=== PATIENT | female | born 1960 | race Caucasian/White ===

== ENCOUNTER 2016-04-17 03:27 | Observation (INO) | payer OTHER ==
[~2016-04-17] VITALS: Ht 160 cm; Wt 90.3 kg
[~2016-04-17 03:27] MED LIST: AFRIN,GENASAL D15 ML BOTH NARES; AMITRIPTYLINE H10 MG PO; BENTYL10 MG PO; CARAFATE1 GM PO; CIPROFLOXACIN500 M1 PO; DICYCLOMINE HCL10 MG PO; DOMP10T PO; ELAVIL10 MG PO; FLAGYL500 MG PO; FLONASE16 G1 BOTH NARES; GAS FREE125 MG PO; KLONOPIN0.5 M1 PO; KlonoPIN PO; LEVAQUIN500 MG PO; Levaquin PO; MAALOX ADVANCE355 ML PO; MECLIZINE HCL25 MG; MECLIZINE HCL25 MG PO; METOCLOPRAMIDE10 MG PO; MUCINEX600 MG PO; OMEPRAZOLE40 M1 PO; PANTOPRAZOLE SO40 MG PO; PERCOCET 5/31 TABLET PO; PHENERGAN25 MG PR; PHILLIPS; PRAVACHOL40 MG PO; PRAVASTATIN SOD80 MG PO; PRINZIDE 20-251 EACH PO; PROBIOTIC1 EAC1 PO; PROMETHAZINE HC25 M1 PO; PROMETHAZINE12.5 M1 PO; PROTONIX40 MG PO; Percocet 5/325,Endoc PO; Protonix PO; SIMETHICONE125 M1 PO; TRAMADOL HCL50 MG PO; ULTRAM50 MG PO; VALIUM5 MG PO; VICODIN 5-5001 EACH PO; ZESTORETIC 20-1 EAC1 NG; ZESTORETIC 20-1 EAC1 PO; ZOFRAN ODT4 MG PO; ZOFRAN ODT8 MG PO; ZOFRAN4 MG PO; ZYRTEC10 M2 PO; Zestoretic,Prinzide PO
[2016-04-17 03:52] LABS: HEMATOCRIT 43.5 % (36.0-46.0); MCH 26.5 PG (29.0-34.0); MCHC 33.3 G/DL (30.0-36.0); MCV 79.5 FL (83-99); MEAN PLAT.VOLUME 9.6 uM^3 (9.5-12.4); PLATELET COUNT 385 K/uL (156-360); RBC DIS.WIDTH-SD 40.1 % (39-53); RED BLOOD COUNT 5.47 M/uL (3.80-5.20); WHITE BLOOD COUNT 11.8 K/uL (4.1-10.2)
[2016-04-17 04:00] LABS: CHLORIDE 98 mEq/L (99-109); POTASSIUM 3.7 mEq/L (3.7-5.4); SODIUM 136 mEq/L (136-147)
[2016-04-17 04:02] LABS: GLUCOSE 185 mg/dL (70-99)
[2016-04-17 04:04] LABS: ANION GAP 19 MEQ/L (2-14); TOTAL BILIRUBIN 0.6 mg/dL (0.0-1.0)
[2016-04-17 04:06] LABS: ALKALINE PHOSPHATASE 89 IU/L (3-129); GFR ESTIMATE (CALCULATED) 41 mL/min/
[2016-04-17 04:07] LABS: UREA NITROGEN (BUN) 30 mg/dL (9-23)
[2016-04-17 04:09] LABS: LIPASE 28 U/L (1.0-51.0)
[2016-04-17 04:15] LABS: QUANTITATIVE HCG < 4.0 MIU/ML
[2016-04-17] MEDS ORDERED: CIPRO500 MG PO (04:47)
[2016-04-17] MEDS ORDERED: FLAGYL500 MG PO (04:47)
[2016-04-17] MEDS ORDERED: ZOFRAN4 MG PO (04:47)
[2016-04-17] MEDS ORDERED: CO Q-10100 MG PO (07:50)
[2016-04-17] MEDS ORDERED: DOMP10T PO (07:52)
[2016-04-17 09:07] VITALS: BP 161/86
[2016-04-17 11:47] VITALS: BP 150/76
[2016-04-17 16:36] VITALS: BP 138/77
[2016-04-17 20:24] VITALS: BP 132/67
[2016-04-18] VITALS (7 sets, daily range): BP systolic 117–154; BP diastolic 53–84
[2016-04-18 07:35] LABS: Estimated Average Glucose 143 mg/dL (70-123); HEMOGLOBIN A1c (GLYCOHEMOGLOB) 6.6 % HGB (Below 5.7)
[2016-04-18 07:41] LABS: ANION GAP 9 MEQ/L (2-14); CHLORIDE 107 MEQ/L (99-109); GFR ESTIMATE (CALCULATED) > 59 mL/min/; POTASSIUM 3.5 MEQ/L (3.7-5.4); SAMPLE HEMOLYSIS CHECK 0; SAMPLE ICTERIC CHECK 0; SAMPLE LIPEMIA CHECK 0; SODIUM 142 MEQ/L (136-147); UREA NITROGEN (BUN) 25 mg/dL (9-23)
[2016-04-18 07:42] LABS: GLUCOSE 117 mg/dL (70-99)
[2016-04-18 08:02] LABS: HEMATOCRIT 35.3 % (36.0-46.0); MCH 26.4 PG (29.0-34.0); MCHC 31.7 G/DL (30.0-36.0); MCV 83.1 FL (83-99); RBC DIS.WIDTH-CV 14.4 % (11.8-14.6); RBC DIS.WIDTH-SD 43.6 % (39-53); RED BLOOD COUNT 4.25 M/uL (3.80-5.20); WHITE BLOOD COUNT 9.9 K/uL (4.1-10.2)
[2016-04-19 03:38] VITALS: BP 156/81
[2016-04-19 07:37] VITALS: BP 143/73
[2016-04-19 07:38] LABS: EOSINOPHIL (%) 2.7 % (0-5); EOSINOPHIL COUNT 0.2 K/uL (0-0.3); HEMATOCRIT 35.1 % (36.0-46.0); IMMATURE GRANULOCYTE (%) 0.6 % (0.0-0.7); IMMATURE GRANULOCYTE COUNT 0.1 K/uL; LYMPHOCYTE COUNT 1.8 K/uL (1.0-2.8); MCH 26.5 PG (29.0-34.0); MCHC 32.2 G/DL (30.0-36.0); MCV 82.2 FL (83-99); MONOCYTE (%) 7.3 % (3-12); MONOCYTE COUNT 0.6 K/uL (0-0.8); NEUTROPHIL (%) 69.1 % (45-76); NEUTROPHIL COUNT 6.1 K/uL (1.8-6.4); RBC DIS.WIDTH-CV 13.8 % (11.8-14.6); RBC DIS.WIDTH-SD 41.5 % (39-53); RED BLOOD COUNT 4.27 M/uL (3.80-5.20); WHITE BLOOD COUNT 8.8 K/uL (4.1-10.2)
[2016-04-19 08:03] LABS: ALKALINE PHOSPHATASE 59 IU/L (3-129); ANION GAP 7 MEQ/L (2-14); CHLORIDE 106 MEQ/L (99-109); GFR ESTIMATE (CALCULATED) > 59 mL/min/; GLUCOSE 94 mg/dL (70-99); POTASSIUM 3.6 MEQ/L (3.7-5.4); SAMPLE HEMOLYSIS CHECK 0; SAMPLE ICTERIC CHECK 0; SAMPLE LIPEMIA CHECK 0; SODIUM 139 MEQ/L (136-147); TOTAL BILIRUBIN 0.3 MG/DL (0.0-1.0); UREA NITROGEN (BUN) 16 mg/dL (9-23)
[2016-04-19 09:40] LABS: MEAN PLAT.VOLUME 9.6 uM^3 (9.5-12.4); PLAT.SUFFICIENCY ADEQUATE; PLATELET COUNT 212 K/uL (156-360); USER ID CL
[2016-04-19] MEDS ORDERED: METRONIDAZOLE500 MG PO (10:37)
[2016-04-19] MEDS ORDERED: CIPRO500 MG PO (10:37)
[2016-04-19] MEDS ORDERED: LISINOPRIL20 MG PO (10:37)
== END 2016-04-19 13:26 | disposition home or self-care (01) ==
LOC: EME 03:27 → EDOF 07:19 → 2EAST 07:19 → EDOF 07:19 → 2EAST 08:44
PROVIDERS: Hospitalist; Internal Medicine
DX: K57.32 Diverticulitis of large intestine without perforation or abscess without bleeding (principal); N17.9 Acute kidney failure, unspecified; I10 Essential (primary) hypertension; E78.5 Hyperlipidemia, unspecified; K21.9 Gastro-esophageal reflux disease without esophagitis; Z82.49 Family history of ischemic heart disease and other diseases of the circulatory system; Z88.0 Allergy status to penicillin; Z88.2 Allergy status to sulfonamides; Z88.5 Allergy status to narcotic agent; Z88.1 Allergy status to other antibiotic agents
CPT/HCPCS: 74176; 80048; 80053; 81003; 83036; 83690; 84702; 85025; 85027; 87040; 99281; 99283; C9113; G0378; J1170; J1650; J1956; J2405; J2550; J2765; J3480; J7030; J7042; S0030

== ENCOUNTER 2016-07-03 12:37 | Inpatient (IN) | payer OTHER ==
[~2016-07-03] VITALS: Ht 160 cm; Wt 93.0 kg
[~2016-07-03 12:37] MED LIST changes: +CIPRO500 MG PO; +CO Q-10100 MG PO; +LISINOPRIL20 MG PO; +METRONIDAZOLE500 MG PO
[2016-07-03 13:43] LABS: HEMATOCRIT 43.8 % (36.0-46.0); MCH 25.3 PG (29.0-34.0); MCHC 32.6 G/DL (30.0-36.0); MCV 77.5 FL (83-99); MEAN PLAT.VOLUME 9.3 uM^3 (9.5-12.4); PLATELET COUNT 433 K/uL (156-360); RBC DIS.WIDTH-CV 14.2 % (11.8-14.6); RBC DIS.WIDTH-SD 39.6 % (39-53); RED BLOOD COUNT 5.65 M/uL (3.80-5.20); WHITE BLOOD COUNT 13.9 K/uL (4.1-10.2)
[2016-07-03 13:52] LABS: CHLORIDE 101 mEq/L (99-109); POTASSIUM 3.8 mEq/L (3.7-5.4); SODIUM 138 mEq/L (136-147)
[2016-07-03 13:54] LABS: GLUCOSE 150 mg/dL (70-99)
[2016-07-03 13:55] LABS: ANION GAP 19 MEQ/L (2-14)
[2016-07-03 13:56] LABS: TOTAL BILIRUBIN 0.6 mg/dL (0.0-1.0)
[2016-07-03 13:58] LABS: ALKALINE PHOSPHATASE 75 IU/L (3-129); GFR ESTIMATE (CALCULATED) 49 mL/min/
[2016-07-03 13:59] LABS: UREA NITROGEN (BUN) 25 mg/dL (9-23)
[2016-07-03 15:31] LABS: LIPASE 16 U/L (1.0-51.0)
[2016-07-03 17:42] LABS: ADD MIUA? YES; BILIRUBIN NEGATIVE; BLOOD MODERATE; COLOR YELLOW ((YELLOW)); GLUCOSE (STRIP) NEGATIVE; KETONES 20; LEUKOCYTES NEGATIVE; NITRITE NEGATIVE; PROTEIN (STRIP) 30; SPECIFIC GRAVITY 1.018 (1.000-1.030); UROBILINOGEN 0.2 MG/DL (0.2-1.0)
[2016-07-03 17:53] LABS: BACTERIA NONE SEEN /HPF; EPITHELIAL CELLS RARE /HPF; HYALINE CASTS 0-5 /LPF; MUCUS TRACE /LPF; UCUL ADDED? NO; WHITE BLOOD CELLS 0-5 /HPF (0-5)
[2016-07-03] MEDS ORDERED: DILAUDID2 MG PO (19:01)
[2016-07-03] MEDS ORDERED: REGLAN10 MG PO (19:01)
[2016-07-03] MEDS ORDERED: LISINOPRIL20 MG PO (20:27)
[2016-07-03] MEDS ORDERED: FLEXERIL10 MG PO (20:29)
[2016-07-03 23:40] VITALS: BP 118/66
[2016-07-04] VITALS (7 sets, daily range): BP systolic 100–202; BP diastolic 54–91
[2016-07-04 06:58] LABS: ANION GAP 11 MEQ/L (2-14); CHLORIDE 104 MEQ/L (99-109); GFR ESTIMATE (CALCULATED) > 59 mL/min/; POTASSIUM 3.9 MEQ/L (3.7-5.4); SAMPLE HEMOLYSIS CHECK 0; SAMPLE ICTERIC CHECK 0; SAMPLE LIPEMIA CHECK 0; SODIUM 139 MEQ/L (136-147); UREA NITROGEN (BUN) 23 mg/dL (9-23)
[2016-07-04 07:01] LABS: GLUCOSE 101 mg/dL (70-99)
[2016-07-04 09:16] LABS: EOSINOPHIL (%) 0.7 % (0-5); EOSINOPHIL COUNT 0.1 K/uL (0-0.3); HEMATOCRIT 34.9 % (36.0-46.0); IMMATURE GRANULOCYTE (%) 0.8 % (0.0-0.7); IMMATURE GRANULOCYTE COUNT 0.1 K/uL; INSTRUMENT ABS NEUTROPHIL CT 7.1 K/uL; LYMPHOCYTE COUNT 1.9 K/uL (1.0-2.8); MCH 25.5 PG (29.0-34.0); MCHC 31.5 G/DL (30.0-36.0); MCV 80.8 FL (83-99); MONOCYTE COUNT 0.9 K/uL (0-0.8); NEUTROPHIL (%) 70.6 % (45-76); NEUTROPHIL COUNT 7.1 K/uL (1.8-6.4); RBC DIS.WIDTH-CV 14.6 % (11.8-14.6); RBC DIS.WIDTH-SD 42.5 % (39-53); WHITE BLOOD COUNT 10.1 K/uL (4.1-10.2)
[2016-07-04 09:21] LABS: RED BLOOD COUNT 4.32 M/uL (3.80-5.20)
[2016-07-04 11:43] LABS: MEAN PLAT.VOLUME 9.2 uM^3 (9.5-12.4); PLAT.SUFFICIENCY ADEQUATE
[2016-07-04 11:49] LABS: PLATELET COUNT 292 K/uL (156-360)
[2016-07-04 21:08] LABS: HEMATOCRIT 33.9 % (36.0-46.0); MCH 25.9 PG (29.0-34.0); MCHC 32.4 G/DL (30.0-36.0); MEAN PLAT.VOLUME 9.1 uM^3 (9.5-12.4); PLATELET COUNT 296 K/uL (156-360); RBC DIS.WIDTH-CV 14.3 % (11.8-14.6); RBC DIS.WIDTH-SD 41.5 % (39-53); RED BLOOD COUNT 4.24 M/uL (3.80-5.20); WHITE BLOOD COUNT 11.6 K/uL (4.1-10.2)
[2016-07-04 21:35] LABS: IRON 80 MCG/DL (35-150)
[2016-07-04 21:50] LABS: FERRITIN 24 NG/ML (10-291)
[2016-07-05 04:01] VITALS: BP 106/58
[2016-07-05 07:37] VITALS: BP 119/65
[2016-07-05 09:03] LABS: HEMATOCRIT 32.8 % (36.0-46.0); MCH 26.2 PG (29.0-34.0); MCHC 32.3 G/DL (30.0-36.0); MEAN PLAT.VOLUME 9.1 uM^3 (9.5-12.4); PLATELET COUNT 248 K/uL (156-360); RBC DIS.WIDTH-CV 14.4 % (11.8-14.6); RBC DIS.WIDTH-SD 42.6 % (39-53); RED BLOOD COUNT 4.05 M/uL (3.80-5.20)
[2016-07-05 09:19] LABS: WHITE BLOOD COUNT 6.7 K/uL (4.1-10.2)
[2016-07-05 09:27] LABS: ALKALINE PHOSPHATASE 51 IU/L (3-129); ANION GAP 7 MEQ/L (2-14); CHLORIDE 106 MEQ/L (99-109); GFR ESTIMATE (CALCULATED) > 59 mL/min/; GLUCOSE 103 mg/dL (70-99); POTASSIUM 3.5 MEQ/L (3.7-5.4); SAMPLE HEMOLYSIS CHECK 0; SAMPLE ICTERIC CHECK 0; SAMPLE LIPEMIA CHECK 0; SODIUM 139 MEQ/L (136-147); TOTAL BILIRUBIN 0.4 MG/DL (0.0-1.0); UREA NITROGEN (BUN) 17 mg/dL (9-23)
[2016-07-05 11:12] VITALS: BP 110/55
[2016-07-05 14:48] LABS: C DIFF TOXIN NEGATIVE (NEGATIVE)
[2016-07-05 14:57] LABS: PROBE CHECK PASS; SPECIMEN PROCESSING CONTROL PASS
[2016-07-05 15:30] VITALS: BP 125/75
[2016-07-05 20:06] VITALS: BP 124/64
[2016-07-05 23:54] VITALS: BP 119/58
[2016-07-06 03:47] VITALS: BP 143/73
[2016-07-06 08:30] VITALS: BP 146/70
[2016-07-06] MEDS ORDERED: ZOFRAN ODT4 MG PO (11:55)
[2016-07-06] MEDS ORDERED: ZOFRAN4 MG PO (11:56)
[2016-07-06] MEDS ORDERED: PANTOPRAZOLE SO40 MG PO (11:56)
== END 2016-07-06 13:56 | disposition home or self-care (01) | DRG 392 ==
LOC: EME 12:37 → 5WEST 22:46 → EDOF 22:46 → 5WEST 23:32
PROVIDERS: Hospitalist; Nurse Practitioner Adult Health; Specialist
DX: K31.84 Gastroparesis (principal); G43.A0 Cyclical vomiting, in migraine, not intractable; G89.4 Chronic pain syndrome; I10 Essential (primary) hypertension; E78.5 Hyperlipidemia, unspecified; E66.9 Obesity, unspecified; Z68.36 Body mass index [BMI] 36.0-36.9, adult; D64.9 Anemia, unspecified; K21.9 Gastro-esophageal reflux disease without esophagitis; K57.30 Diverticulosis of large intestine without perforation or abscess without bleeding; R31.29 Other microscopic hematuria; Z90.49 Acquired absence of other specified parts of digestive tract; Z79.891 Long term (current) use of opiate analgesic
CPT/HCPCS: 71100; 74176; 80048; 80053; 81003; 82607; 82728; 82746; 83540; 83690; 84466; 85025; 85027; 87493; 99281; 99283; G0378; J0360; J0780; J1170; J1630; J1644; J2405; J2765; J3010; J7030; J7050; S0028

== ENCOUNTER 2017-06-28 12:12 | Inpatient (IN) | payer OTHER ==
[~2017-06-28] VITALS: Ht 160 cm; Wt 89.4 kg
[~2017-06-28 12:12] MED LIST changes: +DILAUDID2 MG PO; +FLEXERIL10 MG PO; +OXYCODONE HCL5 MG PO; -PERCOCET 5/31 TABLET PO; +REGLAN10 MG PO
[2017-06-28 12:46] LABS: HEMATOCRIT 42.9 % (36.0-46.0); HEMOGLOBIN 14.5 G/DL (11.9-15.5); MCH 27.4 PG (29.0-34.0); MCHC 33.8 G/DL (30.0-36.0); MCV 81.1 FL (83-99); PLATELET COUNT 343 K/uL (156-360); RBC DIS.WIDTH-CV 13.7 % (11.8-14.6); RBC DIS.WIDTH-SD 39.8 % (39-53); RED BLOOD COUNT 5.29 M/uL (3.80-5.20); WHITE BLOOD COUNT 10.8 K/uL (4.1-10.2)
[2017-06-28 13:01] LABS: ALBUMIN 4.7 g/dL (3.2-4.8); CHLORIDE 100 mEq/L (99-109); POTASSIUM 3.9 mEq/L (3.7-5.4); SODIUM 138 mEq/L (136-147)
[2017-06-28 13:03] LABS: GLUCOSE 163 mg/dL (70-99)
[2017-06-28 13:04] LABS: TOTAL PROTEIN 8.2 g/dL (6.4-8.3)
[2017-06-28 13:05] LABS: TOTAL BILIRUBIN 0.5 mg/dL (0.0-1.0)
[2017-06-28 13:07] LABS: ALKALINE PHOSPHATASE 72 IU/L (3-129); CREATININE 1.1 mg/dL (0.6-1.3); GFR ESTIMATE (CALCULATED) 54 mL/min/
[2017-06-28 13:08] LABS: UREA NITROGEN (BUN) 22 mg/dL (9-23)
[2017-06-28 13:09] LABS: AST (GOT) 24 IU/L (2-34)
[2017-06-28 13:10] LABS: ALT (GPT) 25 IU/L (3-49)
[2017-06-28 15:17] LABS: LIPASE 20 U/L (1.0-51.0)
[2017-06-28 15:45] LABS: APPEARANCE CLEAR ((CLEAR)); BILIRUBIN NEGATIVE; BLOOD MODERATE; COLOR YELLOW ((YELLOW)); GLUCOSE (STRIP) 50; KETONES 20; LEUKOCYTES NEGATIVE; NITRITE NEGATIVE; PROTEIN (STRIP) 30; SPECIFIC GRAVITY 1.023 (1.000-1.030)
[2017-06-28 15:51] LABS: BACTERIA NONE SEEN /HPF; EPITHELIAL CELLS RARE /HPF; HYALINE CASTS 0-5 /LPF; MUCUS TRACE /LPF; UCUL ADDED? NO; WHITE BLOOD CELLS 0-5 /HPF (0-5)
[2017-06-28] MEDS ORDERED: ZOFRAN ODT4 MG PO (16:53)
[2017-06-28] MEDS ORDERED: MECLIZINE HCL25 MG PO (16:54)
[2017-06-28] MEDS ORDERED: PROTONIX40 MG PO (16:54)
[2017-06-28] MEDS ORDERED: BENTYL10 MG PO (16:54)
[2017-06-28 19:45] VITALS: BP 177/98
[2017-06-28 23:43] VITALS: BP 137/63
[2017-06-29 03:51] VITALS: BP 174/97
[2017-06-29 05:50] LABS: BASOPHIL (%) 0.2 % (0-1); EOSINOPHIL (%) 0.2 % (0-5); HEMATOCRIT 34.6 % (36.0-46.0); IMMATURE GRANULOCYTE (%) 0.6 % (0.0-0.7); LYMPHOCYTE (%) 8.5 % (15-42); LYMPHOCYTE COUNT 1.2 K/uL (1.0-2.8); MCH 26.9 PG (29.0-34.0); MCHC 32.7 G/DL (30.0-36.0); MCV 82.4 FL (83-99); MONOCYTE (%) 5.6 % (3-12); MONOCYTE COUNT 0.8 K/uL (0-0.8); NEUTROPHIL (%) 84.9 % (45-76); PLATELET COUNT 279 K/uL (156-360); RBC DIS.WIDTH-CV 14.1 % (11.8-14.6); RBC DIS.WIDTH-SD 41.4 % (39-53); WHITE BLOOD COUNT 14.2 K/uL (4.1-10.2)
[2017-06-29 05:51] LABS: HEMOGLOBIN 11.3 G/DL (11.9-15.5)
[2017-06-29 07:01] LABS: CHLORIDE 104 MEQ/L (99-109); CREATININE 0.8 MG/DL (0.6-1.3); GFR ESTIMATE (CALCULATED) > 59 mL/min/; GLUCOSE 142 mg/dL (70-99); POTASSIUM 3.6 MEQ/L (3.7-5.4); SODIUM 141 MEQ/L (136-147); UREA NITROGEN (BUN) 16 mg/dL (9-23)
[2017-06-29 07:07] VITALS: BP 146/69
[2017-06-29 15:53] VITALS: BP 127/57
[2017-06-29 19:20] VITALS: BP 178/88
[2017-06-29 23:57] VITALS: BP 134/61
[2017-06-30 07:21] VITALS: BP 190/88
[2017-06-30 09:05] VITALS: BP 181/81
[2017-06-30 11:11] VITALS: BP 180/80
[2017-06-30 18:30] VITALS: BP 193/84
[2017-06-30 23:30] VITALS: BP 136/69
[2017-07-01 03:49] VITALS: BP 101/47
[2017-07-01 06:31] LABS: HEMOGLOBIN 12.1 G/DL (11.9-15.5); MCH 27.3 PG (29.0-34.0); MCHC 33.6 G/DL (30.0-36.0); MCV 81.3 FL (83-99); PLATELET COUNT 252 K/uL (156-360); RBC DIS.WIDTH-CV 13.7 % (11.8-14.6); RBC DIS.WIDTH-SD 40.4 % (39-53); RED BLOOD COUNT 4.43 M/uL (3.80-5.20); WHITE BLOOD COUNT 9.5 K/uL (4.1-10.2)
[2017-07-01 06:36] LABS: CHLORIDE 99 MEQ/L (99-109); CREATININE 0.8 MG/DL (0.6-1.3); GFR ESTIMATE (CALCULATED) > 59 mL/min/; GLUCOSE 98 mg/dL (70-99); POTASSIUM 2.9 MEQ/L (3.7-5.4); SODIUM 140 MEQ/L (136-147); UREA NITROGEN (BUN) 16 mg/dL (9-23)
[2017-07-01 07:35] VITALS: BP 139/75
[2017-07-01 11:59] VITALS: BP 124/71
[2017-07-01 15:52] VITALS: BP 120/70
[2017-07-01 20:00] VITALS: BP 120/59
[2017-07-02 01:02] LABS: CHLORIDE 100 mEq/L (99-109); SODIUM 137 mEq/L (136-147)
[2017-07-02 01:03] LABS: MAGNESIUM 1.9 mg/dL (1.3-2.7)
[2017-07-02 01:04] LABS: GLUCOSE 139 mg/dL (70-99)
[2017-07-02 01:07] LABS: GFR ESTIMATE (CALCULATED) > 59 mL/min/
[2017-07-02 01:08] LABS: UREA NITROGEN (BUN) 19 mg/dL (9-23)
[2017-07-02 03:11] VITALS: BP 172/84
[2017-07-02 06:59] LABS: HEMATOCRIT 40.8 % (36.0-46.0); HEMOGLOBIN 13.5 G/DL (11.9-15.5); MCHC 33.1 G/DL (30.0-36.0); MCV 78.6 FL (83-99); RBC DIS.WIDTH-CV 13.4 % (11.8-14.6); RBC DIS.WIDTH-SD 38.4 % (39-53); RED BLOOD COUNT 5.19 M/uL (3.80-5.20); WHITE BLOOD COUNT 12.7 K/uL (4.1-10.2)
[2017-07-02 07:02] LABS: PLATELET COUNT 333 K/uL (156-360)
[2017-07-02 07:19] VITALS: BP 178/83
[2017-07-02 07:24] LABS: ALBUMIN 4.2 G/DL (3.2-4.8); CHLORIDE 96 MEQ/L (99-109); CREATININE 0.8 MG/DL (0.6-1.3); GFR ESTIMATE (CALCULATED) > 59 mL/min/; GLUCOSE 136 mg/dL (70-99); PHOSPHORUS 2.9 mg/dL (2.5-4.9); POTASSIUM 3.3 MEQ/L (3.7-5.4); SODIUM 137 MEQ/L (136-147); UREA NITROGEN (BUN) 15 mg/dL (9-23)
[2017-07-02 11:31] VITALS: BP 124/68
[2017-07-02 16:09] VITALS: BP 130/65
[2017-07-02 19:49] VITALS: BP 124/64
[2017-07-03 03:49] VITALS: BP 115/62
[2017-07-03 06:06] LABS: BASOPHIL (%) 0.8 % (0-1); BASOPHIL COUNT 0.1 K/uL (0-0.1); EOSINOPHIL COUNT 0.5 K/uL (0-0.3); HEMATOCRIT 39.3 % (36.0-46.0); IMMATURE GRANULOCYTE (%) 1.3 % (0.0-0.7); LYMPHOCYTE (%) 26.8 % (15-42); LYMPHOCYTE COUNT 2.8 K/uL (1.0-2.8); MCH 26.8 PG (29.0-34.0); MCHC 33.1 G/DL (30.0-36.0); MONOCYTE (%) 8.1 % (3-12); MONOCYTE COUNT 0.9 K/uL (0-0.8); NEUTROPHIL COUNT 6.1 K/uL (1.8-6.4); PLATELET COUNT 318 K/uL (156-360); RBC DIS.WIDTH-SD 40.4 % (39-53); RED BLOOD COUNT 4.85 M/uL (3.80-5.20); WHITE BLOOD COUNT 10.5 K/uL (4.1-10.2)
[2017-07-03 06:31] LABS: ALBUMIN 3.8 G/DL (3.2-4.8); CHLORIDE 96 MEQ/L (99-109); GFR ESTIMATE (CALCULATED) > 59 mL/min/; POTASSIUM 3.2 MEQ/L (3.7-5.4); SODIUM 139 MEQ/L (136-147); UREA NITROGEN (BUN) 12 mg/dL (9-23)
[2017-07-03 06:34] LABS: GLUCOSE 95 mg/dL (70-99); PHOSPHORUS 4.7 mg/dL (2.5-4.9)
[2017-07-03 08:53] VITALS: BP 146/72
[2017-07-03] MEDS ORDERED: DILAUDID2 MG PO (10:23)
[2017-07-03] MEDS ORDERED: K-DUR20 MEQ PO (12:54)
== END 2017-07-03 12:30 | disposition home or self-care (01) | DRG 74 ==
LOC: EME 12:12 → EDOF 18:20 → 5WEST 18:20 → EDOF 18:20 → ENRESERV 18:30 → 5WEST 19:20 → ENPENDDIS 07-03 → 5WEST 07-03 12:30
PROVIDERS: Hospitalist; Internal Medicine Gastroenterology; Nurse Practitioner Adult Health; Physician Assistant Medical
PROC: 0DB68ZX Excision of Stomach, Via Natural or Artificial Opening Endoscopic, Diagnostic (ICD-10-PCS; principal; 2017-06-29)
DX: E11.43 Type 2 diabetes mellitus with diabetic autonomic (poly)neuropathy (principal); E87.2 Acidosis; K31.84 Gastroparesis; I10 Essential (primary) hypertension; G43.A0 Cyclical vomiting, in migraine, not intractable; E86.0 Dehydration; E78.5 Hyperlipidemia, unspecified; G89.4 Chronic pain syndrome; E66.9 Obesity, unspecified; Z68.34 Body mass index [BMI] 34.0-34.9, adult; E87.6 Hypokalemia; J44.9 Chronic obstructive pulmonary disease, unspecified; I25.10 Atherosclerotic heart disease of native coronary artery without angina pectoris; M19.90 Unspecified osteoarthritis, unspecified site; F32.9 Major depressive disorder, single episode, unspecified; K76.0 Fatty (change of) liver, not elsewhere classified; K25.9 Gastric ulcer, unspecified as acute or chronic, without hemorrhage or perforation; K29.60 Other gastritis without bleeding; K57.90 Diverticulosis of intestine, part unspecified, without perforation or abscess without bleeding; Z82.5 Family history of asthma and other chronic lower respiratory diseases
CPT/HCPCS: 74177; 80048; 80048 91; 80053; 80069; 81003; 82948; 83605; 83690; 83735; 85025; 85027; 88305; 88342 TC; 99281; 99285; G0378; J0360; J0780; J1200; J1630; J1644; J1815; J2060; J2405; J2765; J3010; J3480; J7030